=== PATIENT | male | born 1965 | race Caucasian/White ===

== ENCOUNTER 2016-10-04 08:36 | Emergency (ER) | payer OTHER ==
[~2016-10-04] VITALS: Ht 170.2 cm; Wt 96.1 kg
[2016-10-04 08:39] VITALS: TEMP 37; Ht 170.2 cm; Wt 96.1 kg
[2016-10-04] MEDS ORDERED: SODIUM CHLORIDE 0.9% 1000ML 1,000 ML IV STA (08:54)
[2016-10-04] MEDS ORDERED: RANI150T3 PO (08:57)
[2016-10-04 09:01] LABS: BASO % 0.4 %; BASO ABS # 0.02 K/uL (0-0.2); COMPLETE YES; EOS % 2.2 %; HEMATOCRIT 46.4 % (42-52); IG% 0.4 %; LYMPH % 28.1 %; LYMPH ABS # 1.54 K/uL (1.2-3.4); MEAN CELL VOLUME 91.3 fL (80-100); MEAN CORPUSCULAR HEMOGLOBIN 31.9 pg (25-34); MEAN CORPUSCULAR HGB CONC 34.9 g/dl (32-36); MEAN PLATELET VOLUME 9.6 fL (7.4-10.4); MONO % 9.1 %; NEUT % 59.8 %; PLATELET COUNT 224 K/uL (130-400); RED BLOOD COUNT 5.08 M/uL (4.7-6.1); WHITE BLOOD COUNT 5.49 K/uL (4.8-10.8)
--- NOTE | 2016-10-04 09:01 | EMERGENCY ROOM VISIT NOTE ---
History Report prepared by Kwabena: María Lopez Under the Supervision of: José Miguel BarreraO. First contact with patient: 08:43 Chief Complaint: ABDOMINAL PAIN Stated Complaint: ABD PAIN Nursing Triage Summary: Patient reports right sided abd pain off and on since June states he had a CT scan yesterday at [facility] and states the pain increased last night. Patient also having diarrhea and nausea. History of Present Illness The patient is a 51 year old male who presents to the Emergency Room with complaints of intermittent right lower quadrant abdominal pain that began initially in June. He currently rates his discomfort as a 4/10 in severity. The patient states that he has had the abdominal pain intermittently since June, but states that this particular bout of abdominal pain began Monday. He states that he has been following with Dr. Torres with Gastroenterology. The patient states that yesterday he had a CT scan at [facility], but is unsure what the results are. He states that today he has experienced nausea and diarrhea. The patient denies any chest pain, shortness of breath, back pain, fever, or urinary symptoms. He notes a surgical history of a partial colectomy due to a precancerous polyp. The patient additionally notes that he had an appendectomy at that time. He states that he still has his gallbladder. Source of History: patient Onset: June Position: abdomen (RLQ) Symptom Intensity: 4/10 Timing: intermittent Associated Symptoms: + diarrhea, + nausea, No SOB, No back pain, No chest pain, No fevers, No urinary symptoms, No vomiting Review of Systems See HPI for pertinent positives & negatives. A total of 10 systems reviewed and were otherwise negative. Past Medical & Surgical Medical Problems: (1) No chronic diseases present Surgical Problems: (1) Hx of appendectomy (2) Hx of colonoscopy (3) S/P partial colectomy Family History FHx: heart disease Hypertension Social History Smoking Status: Never Smoker Alcohol Use: none Drug Use: none Marital Status: Occupation Status: employed Current/Historical Medications Scheduled Ranitidine Hcl (Zantac), 150 MG PO DAILY Allergies Coded Allergies: No Known Allergies (Unverified , 10/04/16) Physical Exam Vital Signs Date Time Temp Pulse Resp B/P Pulse Ox O2 Delivery O2 Flow Rate FiO2 10/04/16 10:01 66 16 138/81 98 Room Air 10/04/16 08:39 37.0 77 20 117/72 95 Room Air Physical Exam GENERAL: Patient is awake, alert, and in no acute distress. Patient is resting comfortably and showing no signs of anxiety EYES: The conjunctivae are clear. The pupils are round and reactive. EARS, NOSE, MOUTH AND THROAT: The nose is without any evidence of any deformity. Mucous membranes are moist tongue is midline NECK: The neck is nontender and supple. RESPIRATORY: Normal respiratory effort is noted there is no evidence of wheezing rhonchi or rales CARDIOVASCULAR: Regular rate and rhythm noted there no murmurs rubs or gallops normal S1 normal S2 GASTROINTESTINAL: Mildly distended, but soft. Tenderness in the right upper and right lower quadrant to palpation. No guarding or rigidity noted. BACK: No midline tenderness or or step-off noted range of motion in flexion extension as well as rotation no signs of muscle spasm noted MUSCULOSKELETAL/EXTREMITIES: There is no evidence of gross deformity full range of motion is noted in the hips and shoulders SKIN: There is no obvious evidence of any rash. There are no petechiae, pallor or cyanosis noted. NEUROLOGIC: Patient is awake alert and oriented x3. Medical Decision & Procedures ER Provider Diagnostic Interpretation: CT results as stated below per my review and radiologist interpretation. Abdomen/Pelvis CT scan from [facility] 10/03/16 Impression: 1. No abnormality seen within the right upper quadrant. 2. Cecum appears positioned in the right mid to upper abdomen in the position of the proximal transverse colon without colonic loops observed at the expected location of the ascending and cecal regions. No bowel wall thickening, obstruction or ileus observed. Laboratory Results 10/04/16 08:50 Red Blood Count 5.08, Mean Corpuscular Volume 91.3, Mean Corpuscular Hemoglobin 31.9, Mean Corpuscular Hemoglobin Concent 34.9, Mean Platelet Volume 9.6, Neutrophils (%) (Auto) 59.8, Lymphocytes (%) (Auto) 28.1, Monocytes (%) (Auto) 9.1, Eosinophils (%) (Auto) 2.2, Basophils (%) (Auto) 0.4, Neutrophils # (Auto) 3.29, Lymphocytes # (Auto) 1.54, Monocytes # (Auto) 0.50, Eosinophils # (Auto) 0.12, Basophils # (Auto) 0.02 10/04/16 08:50 Test 10/04/16 08:50 10/04/16 10:07 White Blood Count 5.49 K/uL (4.8-10.8) Red Blood Count 5.08 M/uL (4.7-6.1) Hemoglobin 16.2 g/dL (14.0-18.0) Hematocrit 46.4 % (42-52) Mean Corpuscular Volume 91.3 fL (80-100) Mean Corpuscular Hemoglobin 31.9 pg (25-34) Mean Corpuscular Hemoglobin Concent 34.9 g/dl (32-36) Platelet Count 224 K/uL (130-400) Mean Platelet Volume 9.6 fL (7.4-10.4) Neutrophils (%) (Auto) 59.8 % Lymphocytes (%) (Auto) 28.1 % Monocytes (%) (Auto) 9.1 % Eosinophils (%) (Auto) 2.2 % Basophils (%) (Auto) 0.4 % Neutrophils # (Auto) 3.29 K/uL (1.4-6.5) Lymphocytes # (Auto) 1.54 K/uL (1.2-3.4) Monocytes # (Auto) 0.50 K/uL (0.11-0.59) Eosinophils # (Auto) 0.12 K/uL (0-0.5) Basophils # (Auto) 0.02 K/uL (0-0.2) RDW Standard Deviation 43.1 fL (36.4-46.3) RDW Coefficient of Variation 12.8 % (11.5-14.5) Immature Granulocyte % (Auto) 0.4 % Immature Granulocyte # (Auto) 0.02 K/uL (0.00-0.02) Anion Gap 9.0 mmol/L (3-11) Est Creatinine Clear Calc Drug Dose 87.8 ml/min Estimated GFR () 89.6 Estimated GFR (Non- 77.3 BUN/Creatinine Ratio 10.1 (10-20) Calcium Level 9.2 mg/dl (8.5-10.1) Total Bilirubin 0.7 mg/dl (0.2-1) Direct Bilirubin 0.1 mg/dl (0-0.2) Aspartate Amino Transf (AST/SGOT) 21 U/L (15-37) Alanine Aminotransferase (ALT/SGPT) 28 U/L (12-78) Alkaline Phosphatase 62 U/L (45-117) Total Protein 7.4 gm/dl (6.4-8.2) Albumin 4.0 gm/dl (3.4-5.0) Lipase 109 U/L (73-393) Urine Color YELLOW Urine Appearance CLEAR (CLEAR) Urine pH 6.5 (4.5-7.5) Urine Specific [place] 1.006 (1.000-1.030) Urine Protein NEG (NEG) Urine Glucose (UA) NEG (NEG) Urine Ketones NEG (NEG) Urine Occult Blood NEG (NEG) Urine Nitrite NEG (NEG) Urine Bilirubin NEG (NEG) Urine Urobilinogen NEG (NEG) Urine Leukocyte Esterase NEG (NEG) Laboratory results per my review. Medications Administered Medications (Trade) Dose Ordered Sig/Stan Route Start Time Stop Time Status Last Admin Dose Admin Sodium Chloride (Nss 1000ml) 1,000 ml @ 999 mls/hr Q1H1M STAT IV 10/04/16 08:54 10/04/16 09:54 DC 10/04/16 08:58 999 MLS/HR ED Course 0848: The patient was evaluated in room A4B. A complete history and physical examination were performed. 0854: Ordered Sodium Chloride 1000 ml @ 999 mls/hr IV. 1005: I reevaluated the patient and he is resting comfortably. I discussed the exam findings with him and I discussed the treatment plan. He verbalized complete understanding and agreement. The patient is ready to go home. 1007: I discussed the patients case with Dr. Torres, Gastroenterology. He said that the patient is okay to go home. Medical Decision Differential diagnosis: Etiologies such as appendicitis, diverticulitis, PUD, biliary pathology, UTI, pancreatitis, obstruction, mesenteric ischemia, aortic pathology, infections, inflammatory bowel disease, renal colic, as well as others were entertained. Nursing notes reviewed. Patient's CT from [facility] was also reviewed. The patient is a 51-year-old male who presented to the emergency department with right sided abdominal pain. The patient has a history of colon resection in the past. The patient has been having right-sided abdominal pain for the last few months. He states the pain is intermittent. He has a follow-up with his general surgeon this week but had a CAT scan of the abdomen and pelvis done yesterday. The patient's prep I think may have caused him some of this discomfort. His abdominal exam was not consistent with an acute surgical abdomen but he did have reproducible right sided abdominal pain. I discussed patient's laboratory and radiographic studies with him. He was treated with IV fluids in the emergency department. I also discussed his case with his primary general surgeon. At this time I have recommended that he follow-up with his primary surgeon this week as scheduled. He was also encouraged to rest and avoid any strenuous activity. He was also encouraged to continue all medications as prescribed and return the emergency Department immediately if symptoms change worsen or if the need arises. Consults Time Called: 1005 Consulting Physician: Dr. Torres, Gastroenterology Returned Call: 1007 I discussed the patients case with Dr. Torres, Gastroenterology. He said that the patient is okay to go home. Impression Primary Impression: Right upper quadrant abdominal pain Additional Impression: Diarrhea Scribe Attestation The scribe's documentation has been prepared under my direction and personally reviewed by me in its entirety. I confirm that the note above accurately reflects all work, treatment, procedures, and medical decision making performed by me. Departure Information Dispostion Home / Self-Care Referrals Hollis Berger M.D. (PCP) Neftali Torres M.D. Forms Call Back Authorization, HOME CARE DOCUMENTATION FORM, IMPORTANT VISIT INFORMATION, Work Instructions Patient Instructions ED Abd Pain Unkn Cause Male, My [facility] Additional Instructions Follow-up with your surgeon this week as scheduled. Continue all medications as prescribed. Drink plenty clear liquids. Return to the emergency department immediately if symptoms change worsen or if the need arises. Problem Qualifiers Additional Impression: Diarrhea Diarrhea type: unspecified type Qualified Codes: R19.7 - Diarrhea, unspecified
[2016-10-04 09:19] LABS: BUN/CREATININE RATIO 10.1 (10-20); CALCIUM 9.2 mg/dl (8.5-10.1); CREATININE 1.1 mg/dl (0.60-1.40); POTASSIUM 3.8 mmol/L (3.5-5.1)
[2016-10-04 10:01] VITALS: BP 138/81; PULSE 66; O2SAT 98
[2016-10-04 10:16] LABS: URINE APPEARANCE CLEAR (CLEAR); URINE BILIRUBIN NEG (NEG); URINE COLOR YELLOW; URINE NITRITE NEG (NEG); URINE PH 6.5 (4.5-7.5); URINE SPECIFIC GRAVITY 1.006 (1.000-1.030); UROBILINOGEN NEG (NEG)
[2016-10-04 10:21] LABS: MANUAL MICROSCOPIC REQUIRED? NO; REVIEW REQ? NO
== END 2016-10-04 10:21 | disposition home or self-care (01) ==
LOC: C.EDB 08:38 → C.EDA 10:21
DX: R10.11 Right upper quadrant pain (principal); R19.7 Diarrhea, unspecified; R10.31 Right lower quadrant pain; Z82.49 Family history of ischemic heart disease and other diseases of the circulatory system

== ENCOUNTER 2017-05-14 01:09 | Emergency (ER) | payer OTHER ==
[~2017-05-14] VITALS: Ht 172.7 cm; Wt 93.8 kg
[~2017-05-14 01:09] MED LIST: RANI150T3 PO
[2017-05-14 01:23] VITALS: TEMP 36.7; Ht 172.7 cm; Wt 93.8 kg
[2017-05-14 03:10] LABS: URINE APPEARANCE CLEAR (CLEAR); URINE BILIRUBIN NEG (NEG); URINE COLOR YELLOW; URINE EPITHELIAL CELL AUTO 0-5 /lpf (0-5); URINE NITRITE NEG (NEG); URINE SPECIFIC GRAVITY 1.015 (1.000-1.030); UROBILINOGEN NEG (NEG); ZZUR CULT IF INDIC CLEAN CATCH NO
[2017-05-14 03:14] LABS: BASO % 0.5 %; BASO ABS # 0.03 K/uL (0-0.2); COMPLETE YES; EOS % 3.2 %; HEMATOCRIT 46.3 % (42-52); IG% 0.2 %; LYMPH % 28.1 %; LYMPH ABS # 1.86 K/uL (1.2-3.4); MEAN CELL VOLUME 91.5 fL (80-100); MEAN CORPUSCULAR HEMOGLOBIN 31.2 pg (25-34); MEAN CORPUSCULAR HGB CONC 34.1 g/dl (32-36); MEAN PLATELET VOLUME 9.7 fL (7.4-10.4); MONO % 13.4 %; NEUT % 54.6 %; PLATELET COUNT 239 K/uL (130-400); RED BLOOD COUNT 5.06 M/uL (4.7-6.1); WHITE BLOOD COUNT 6.62 K/uL (4.8-10.8)
[2017-05-14 03:14] LABS: MANUAL MICROSCOPIC REQUIRED? NO; REVIEW REQ? NO
[2017-05-14 03:28] LABS: BUN/CREATININE RATIO 20.1 (10-20); CALCIUM 8.8 mg/dl (8.5-10.1); CREATININE 0.85 mg/dl (0.60-1.40); POTASSIUM 3.6 mmol/L (3.5-5.1)
[2017-05-14 03:31] LABS: ALB/GLOB RATIO 1.2 (0.9-2)
[2017-05-14] MEDS ORDERED: NAPR1TAB9 PO (03:41)
[2017-05-14] MEDS ORDERED: OMEP40CA41 PO (03:41)
--- NOTE | 2017-05-14 06:45 | DIAGNOSTIC IMAGING REPORT ---
CHEST ONE VIEW PORTABLE CLINICAL HISTORY: Shortness of breath. Abdominal pain, nausea, vomiting, diarrhea. COMPARISON STUDY: 07/19/2016 FINDINGS: The cardiac and mediastinal contours are normal. There is no evidence of focal pulmonary consolidation. There is no evidence of failure. No pleural effusions are visualized.[ No free intraperitoneal air is visualized. IMPRESSION: No active disease in the chest. Electronically signed by: Isael Lara M.D. 05/14/2017 6:44 AM Dictated Date/Time: 05/14/2017 6:43 AM
--- NOTE | 2017-05-14 06:50 | EMERGENCY ROOM VISIT NOTE ---
History Report prepared by Kwabena: Ann Hoffman Under the Supervision of: Dr. uJli Vizcarra D.O. First contact with patient: 03:17 Chief Complaint: GI ASSESSMENT Stated Complaint: SHORTNESS OF BREATH,NECK PAIN,STOMACH PAIN Nursing Triage Summary: pt woke with diarrhea nausea and then became sob. 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 The patient woke up from sleep to go to the bathroom. He had some diarrhea. He then started having nausea, SOB, and chills. He felt like his abdomen with tightening up. He then noticed that he had some left flank pain. He has never had these symptoms before. He denies any urinary symptoms, cough, fever, bloody stool, vomiting, or joint pain. He notes that he developed some neck pain this morning after going on a walk. He is concerned for lyme disease as he does spend time in the [place]. He has been having GI problems for several years now. He has been having intermittent diarrhea for several months. He has also been having right sided abdominal pain which he thinks might worsen with coffee consumption. He notes that his abdominal pain improves at times after he passes gas. He has a history of partial colectomy for a precancerous polyp. He denies any family history of colon cancer. He is on omeprazole. He denies any recent medication or dietary changes. The patient is a difficult historian. 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 Review of Systems See HPI for pertinent positives & negatives. A total of 10 systems reviewed and were otherwise negative. Past Medical & Surgical Surgical Problems: (1) Hx of appendectomy (2) Hx of colonoscopy (3) S/P partial colectomy Family History FHx: heart disease Hypertension Social History Smoking Status: Never Smoker Alcohol Use: none Drug Use: none Marital Status: Occupation Status: employed Current/Historical Medications Scheduled Omeprazole (Prilosec), 40 MG PO BID Scheduled PRN Naproxen (Aleve), 220 MG PO Q12 PRN for Pain Allergies Coded Allergies: No Known Allergies (Unverified , 05/14/17) Physical Exam Vital Signs Date Time Temp Pulse Resp B/P (MAP) Pulse Ox O2 Delivery O2 Flow Rate FiO2 05/14/17 07:17 61 18 118/71 99 Room Air 05/14/17 06:20 58 16 120/67 98 Room Air 05/14/17 04:21 88 16 123/76 98 Room Air 05/14/17 01:23 36.7 85 18 142/88 98 Room Air Physical Exam GENERAL: alert, well appearing, well nourished, no distress, non-toxic EYE EXAM: normal conjunctiva, PERRL and EOM's grossly intact OROPHARYNX: no exudate, no erythema, lips, buccal mucosa, and tongue normal and mucous membranes are moist NECK: supple, no nuchal rigidity, no adenopathy, non-tender LUNGS: Clear to auscultation. Normal chest wall mechanics HEART: no murmurs, S1 normal and S2 normal ABDOMEN: abdomen soft, non-tender, normo-active bowel sounds, no masses, no rebound or guarding. BACK: Back is symmetrical on inspection and there is no deformity, no midline tenderness, no CVA tenderness. SKIN: no rashes and no bruising UPPER EXTREMITIES: upper extremities are grossly normal. LOWER EXTREMITIES: No pitting edema. NEURO EXAM: Normal sensorium, cranial nerves II-XII grossly intact, normal speech, no gross weakness of arms, no gross weakness of legs. Medical Decision & Procedures ER Provider Diagnostic Interpretation: Radiology results have been interpreted by the [employer] radiologist and reviewed by me. CT Abdomen & Pelvis without contrast: Gallbladder is contracted limiting evaluation. No calcified gallstones or CT evidence for cholecystitis is appreciated. No urinary tract calculi or hydronephrosis. Diverticulosis. No diverticulitis or other acute process. Postop changes with right hemicolectomy. Xray results have been interpreted by me. Chest X-ray: No cardiomegaly. No effusion. No focal infiltrate. No wide mediastinum. No pulmonary edema. Laboratory Results 05/14/17 02:24 Red Blood Count 5.06, Mean Corpuscular Volume 91.5, Mean Corpuscular Hemoglobin 31.2, Mean Corpuscular Hemoglobin Concent 34.1, Mean Platelet Volume 9.7, Neutrophils (%) (Auto) 54.6, Lymphocytes (%) (Auto) 28.1, Monocytes (%) (Auto) 13.4, Eosinophils (%) (Auto) 3.2, Basophils (%) (Auto) 0.5, Neutrophils # (Auto ) 3.62, Lymphocytes # (Auto) 1.86, Monocytes # (Auto) 0.89, Eosinophils # (Auto ) 0.21, Basophils # (Auto) 0.03 05/14/17 02:24 Test 05/14/17 02:24 05/14/17 02:45 05/14/17 06:31 White Blood Count 6.62 K/uL (4.8-10.8) Red Blood Count 5.06 M/uL (4.7-6.1) Hemoglobin 15.8 g/dL (14.0-18.0) Hematocrit 46.3 % (42-52) Mean Corpuscular Volume 91.5 fL (80-100) Mean Corpuscular Hemoglobin 31.2 pg (25-34) Mean Corpuscular Hemoglobin Concent 34.1 g/dl (32-36) Platelet Count 239 K/uL (130-400) Mean Platelet Volume 9.7 fL (7.4-10.4) Neutrophils (%) (Auto) 54.6 % Lymphocytes (%) (Auto) 28.1 % Monocytes (%) (Auto) 13.4 % Eosinophils (%) (Auto) 3.2 % Basophils (%) (Auto) 0.5 % Neutrophils # (Auto) 3.62 K/uL (1.4-6.5) Lymphocytes # (Auto) 1.86 K/uL (1.2-3.4) Monocytes # (Auto) 0.89 K/uL (0.11-0.59) Eosinophils # (Auto) 0.21 K/uL (0-0.5) Basophils # (Auto) 0.03 K/uL (0-0.2) RDW Standard Deviation 42.9 fL (36.4-46.3) RDW Coefficient of Variation 12.9 % (11.5-14.5) Immature Granulocyte % (Auto) 0.2 % Immature Granulocyte # (Auto) 0.01 K/uL (0.00-0.02) Anion Gap 6.0 mmol/L (3-11) Est Creatinine Clear Calc Drug Dose 112.9 ml/min Estimated GFR () 116.1 Estimated GFR (Non- 100.2 BUN/Creatinine Ratio 20.1 (10-20) Calcium Level 8.8 mg/dl (8.5-10.1) Total Bilirubin 0.4 mg/dl (0.2-1) Aspartate Amino Transf (AST/SGOT) 16 U/L (15-37) Alanine Aminotransferase (ALT/SGPT) 26 U/L (12-78) Alkaline Phosphatase 91 U/L (45-117) Total Protein 7.4 gm/dl (6.4-8.2) Albumin 4.0 gm/dl (3.4-5.0) Globulin 3.4 gm/dl (2.5-4.0) Albumin/Globulin Ratio 1.2 (0.9-2) Urine Color YELLOW Urine Appearance CLEAR (CLEAR) Urine pH 6.0 (4.5-7.5) Urine Specific [place] 1.015 (1.000-1.030) Urine Protein NEG (NEG) Urine Glucose (UA) NEG (NEG) Urine Ketones NEG (NEG) Urine Occult Blood TRACE (NEG) Urine Nitrite NEG (NEG) Urine Bilirubin NEG (NEG) Urine Urobilinogen NEG (NEG) Urine Leukocyte Esterase NEG (NEG) Urine WBC (Auto) 1-5 /hpf (0-5) Urine RBC (Auto) 0-4 /hpf (0-4) Urine Hyaline Casts (Auto) 0 /lpf (0-5) Urine Epithelial Cells (Auto) 0-5 /lpf (0-5) Urine Bacteria (Auto) NEG (NEG) Troponin I < 0.015 ng/ml (0-0.045) Laboratory results per my review. ECG Indication: abdominal pain Rate (beats per minute): 58 Rhythm: sinus bradycardia Findings: no acute ischemic change, no ectopy, other (normal axis, normal intervals) ED Course 0343: The patient was evaluated in room A4B. A complete history and physical exam was performed. 0602: Upon reevaluation, the patient is feeling better. I discussed the findings and the treatment plan with the patient. He verbalizes agreement and understanding. He was discharged home. Medical Decision Differential diagnoses includes but is not limited to gastritis, peptic ulcer disease, GERD, gallbladder disease, pancreatitis, small bowel obstruction, acute coronary syndrome, pericarditis, ischemic bowel, irritable bowel disease, irritable bowel syndrome, appendicitis, diverticulitis, malignancy, hernia, urinary tract infection, torsion, perforation, trauma, infectious. Patient's symptoms had improved prior to my evaluation. Small amount of blood noted in the urine, so CAT scan ordered. No evidence of kidney stone. No evidence of additional infectious etiology. No evidence of bowel obstruction or other acute GI pathology. Doubt mesenteric ischemia. No evidence of bacteremia/sepsis. Discussed close follow-up with family doctor as well as GI specialist regarding the intermittent abdominal pain and nausea he has had of the course of several weeks. Discussed with him symptoms to watch and return for, he verbalized understanding was agreeable with plan. Patient's vital signs stable throughout, patient well-appearing time of discharge, tolerating by mouth. Medication Reconcilliation Current Medication List: was personally reviewed by me Blood Pressure Screening Patient's blood pressure: Normal blood pressure Blood pressure disposition: Did not require urgent referral Impression Primary Impression: Abdominal pain Additional Impressions: Diarrhea Nausea Hematuria Scribe Attestation The scribe's documentation has been prepared under my direction and personally reviewed by me in its entirety. I confirm that the note above accurately reflects all work, treatment, procedures, and medical decision making performed by me. Departure Information Dispostion Home / Self-Care Referrals Hollis Berger M.D. (PCP) Patient Instructions My [facility] Additional Instructions Please follow up with your family doctor regarding the episode of abdominal pain and nausea you had tonight. Please continue regular medications as prescribed. Please continue to monitor your diet for any potential triggers or pattern to your intermittent episodes of abdominal pain and loose stools. If you have any recurrent or persistent pain, develop diarrhea, black or bloody stools, vomiting, fevers, or you've any other new concerns, please return the emergency room. There was a small amount of blood noted in your urine specimen , please have your family doctor recheck this. If this persists, you may need additional evaluation by urology. Problem Qualifiers Primary Impression: Abdominal pain Abdominal location: left lower quadrant Qualified Codes: R10.32 - Left lower quadrant pain Additional Impressions: Diarrhea Diarrhea type: unspecified type Qualified Codes: R19.7 - Diarrhea, unspecified Hematuria Hematuria type: unspecified type Qualified Codes: R31.9 - Hematuria, unspecified
[2017-05-14 07:17] VITALS: BP 118/71; PULSE 61; O2SAT 99
--- NOTE | 2017-05-14 08:48 | DIAGNOSTIC IMAGING REPORT ---
CT SCAN OF THE ABDOMEN AND PELVIS WITHOUT CONTRAST CLINICAL HISTORY: Flank pain and hematuria COMPARISON STUDY: No previous studies for comparison. TECHNIQUE: CT scan of the abdomen and pelvis was performed from the lung bases to the proximal femurs. Images are reviewed in the axial, sagittal, and coronal planes. IV contrast was not administered for this examination. A dose lowering technique was utilized adhering to the principles of ALARA. CT DOSE: 501.10 mGy.cm FINDINGS: Lower chest: There are minimal dependent atelectatic changes Liver: The unenhanced liver is normal in size, contour, and attenuation. There is no intrahepatic biliary ductal dilatation. Gallbladder: Unremarkable. Spleen: Normal in size and attenuation. There is a 2 cm splenule Pancreas: Unremarkable. Adrenal glands: Unremarkable. Kidneys: No renal, ureteral, or bladder calculi are visualized. Bowel: There are no transition zones to indicate bowel obstruction. The patient appears be status post a prior right hemicolectomy. There is no acute diverticulitis. Peritoneum: There is no intraperitoneal free air or abdominal ascites. There is small fat-containing inguinal hernias left larger than right Vasculature: The abdominal aorta is normal in course and caliber. Adenopathy: None. Pelvic viscera: The bladder, and pelvic viscera are unremarkable. Skeletal structures: No destructive osseous lesions are seen. IMPRESSION: 1. Postsurgical changes of a right hemicolectomy 2. No acute findings. 3. No renal, ureteral, or bladder calculi identified 4. No evidence of bowel obstruction. No evidence of free air. Electronically signed by: Isael Lara M.D. 05/14/2017 8:47 AM Dictated Date/Time: 05/14/2017 8:43 AM
== END 2017-05-14 07:39 | disposition home or self-care (01) ==
LOC: C.EDB 01:11 → C.EDA 07:39
DX: R10.32 Left lower quadrant pain (principal); R19.7 Diarrhea, unspecified; R11.0 Nausea; R31.9 Hematuria, unspecified; Z86.010 Personal history of colon polyps; Z82.49 Family history of ischemic heart disease and other diseases of the circulatory system; Z79.899 Other long term (current) drug therapy

== ENCOUNTER 2023-12-19 03:15 | Observation (INO) ==
[2023-12-19] MEDS ORDERED: MoRPHine SULFATE 4 MG/ML 1 ML CARP\\VIAL IV PRN (03:32)
[2023-12-19] MEDS: SODIUM CHLORIDE 0.9% 1,000 ML IV SCH ×2 (03:39→06:45)
[2023-12-19 03:52] LABS: Basophils # (auto) 0.03 K/uL (0.00-0.20); Basophils % (auto) 0.4 %; Eosinophils # (auto) 0.36 K/uL (0.00-0.50); Eosinophils % (auto) 4.8 %; Hemoglobin 14.6 g/dl (14.0-18.0); Immature Granulocytes # (auto) 0.02 K/uL (0.01-0.20); Immature Granulocytes % (auto) 0.3 %; Lymphocytes # (auto) 2.04 K/uL (1.20-3.40); Lymphocytes % (auto) 26.9 %; Mean Corpuscular Hemoglobin 31.7 pg (25.0-34.0); Mean Corpuscular Hgb Conc 33.2 g/dL (32.0-36.0); Mean Corpuscular Volume 95.4 fL (80.0-100.0); Mean Platelet Volume 10.2 fL (9.4-12.4); Monocytes # (auto) 0.79 K/uL (0.11-0.59); Monocytes % (auto) 10.4 %; Neutrophils # (auto) 4.33 K/uL (1.40-6.50); Neutrophils % (auto) 57.2 %; Platelet Count 170 K/uL (130-400); RDW Coefficient of Variation 14.1 % (11.5-14.5); RDW Standard Deviation 49.4 fL (36.4-46.3); Red Blood Count 4.61 M/uL (4.70-6.10); White Blood Count 7.57 K/ul (4.8-10.8)
[2023-12-19 04:03] LABS: Albumin Globulin Ratio 1.7 (0.9-2); BUN Creatinine Ratio 17.8 (10-20); Bilirubin,Total 1.3 mg/dl (0.2-1.0); Calcium 9.1 mg/dl (8.6-10.3); Creatinine Clr Calc Pharmacy 99.7 ml/min; Est GFR (African American) 108.7 ml/min; Est GFR (Non-African American) 93.8 ml/min; Globulin 2.3 gm/dl (2.5-4.0); Magnesium 1.8 mg/dl (1.7-2.4); Potassium 4.2 mmol/L (3.5-5.1); Total Protein 6.3 gm/dl (6.0-8.3)
--- NOTE | 2023-12-19 05:34 | Emergency Department Note ---
History of Present Illness General Chief complaint: GI Assessment Stated complaint: ABDOMINAL PAIN - POSSIBLE INTESTINAL PERFORATION Time Seen by Provider: 12/19/23 03:24 History of Present Illness Maximum Pain Intensity: 6 This is a 58-year-old male presenting to the emergency department for evaluation of right-sided and lower abdominal pain. Patient symptoms have been worsening over the past 2 to 3 days. He does have a history of colon cancer with subsequent colon resection. Last month the patient was at this facility for similar pain and was found to have a perforated Meckel's diverticulum that resolved with antibiotics and conservative care. Patient is concerned for the same as symptoms are fairly similar to that episode. He has not had nausea or vomiting. He feels like he has been using the bathroom as normal. He rates his discomfort a 6/10. Home Medications Medication Instructions Recorded Confirmed Type amoxicillin 875 mg-potassium 1 tab PO BID #14 tabs 11/12/23 Rx clavulanate 125 mg tablet Allergies Allergy/AdvReac Type Severity Reaction Status Date / Time No Known Allergies Allergy Verified 11/12/23 19:43 Past Med/Surg History Problem List (Updated 12/19/23 @ 07:15 by Prasad Eugene PA-C) Meckel diverticulum (Acute) Abdominal pain (Acute) Atrial fibrillation with rapid ventricular response (Acute) COVID-19 virus infection (Acute) History of colon resection Tubulovillous adenoma of colon (Acute 07/07/14) Abdominal pain (Acute) Elevated CK (Acute) Multiple air fluid levels of small intestine determined by X-ray (Acute) Diarrhea (Acute) Right upper quadrant abdominal pain (Acute) Social History Smoking Status: Never smoker Preferred Language: Thai marital status: Current Living Situation: Spouse and Family current occupational status: employed Feels Safe at Home: No Review of Systems A total of 10 systems reviewed and were otherwise negative Physical Exam Vital Signs Vital Signs - 24 hr 12/19/23 03:18 12/19/23 06:12 12/19/23 06:14 Temperature 36.2 C L Temperature Source Temporal Artery Scan Pulse Rate 103 H 120 H Pulse Rate [Apical] 126 H Pulse Rate from SpO2 Sensor Pulse Rhythm Irregular Pulse Rhythm [Apical] Irregular Pulse Strength [Apical] Normal Respiratory Rate 18 16 16 Respiratory Effort / Characteristics Non-Labored Non-Labored Spontaneous Respiratory Depth Normal Normal Respiratory Pattern Regular Blood Pressure 126/86 Blood Pressure [Right Arm] 124/87 Blood Pressure Mean 99 Blood Pressure Mean [Right Arm] 99 Blood Pressure Position [Right Arm] Semi-fowlers Pulse Oximetry 98 97 97 Oxygen Delivery Method Room Air Room Air Room Air Sepsis Recent Fever Within 48 Hours No Sepsis New/Unexplained Change in Mental Status N/A Sepsis Action Taken by Nursing No Action Required 12/19/23 06:17 12/19/23 06:18 12/19/23 06:20 Temperature Temperature Source Pulse Rate 138 H 131 H 118 H Pulse Rate [Apical] Pulse Rate from SpO2 Sensor 108 H 120 H Pulse Rhythm Pulse Rhythm [Apical] Pulse Strength [Apical] Respiratory Rate 22 22 Respiratory Effort / Characteristics Respiratory Depth Respiratory Pattern Blood Pressure Blood Pressure [Right Arm] Blood Pressure Mean Blood Pressure Mean [Right Arm] Blood Pressure Position [Right Arm] Pulse Oximetry 97 98 Oxygen Delivery Method Sepsis Recent Fever Within 48 Hours Sepsis New/Unexplained Change in Mental Status Sepsis Action Taken by Nursing 12/19/23 06:30 12/19/23 06:40 12/19/23 06:42 Temperature Temperature Source Pulse Rate 117 H 124 H Pulse Rate [Apical] Pulse Rate from SpO2 Sensor 112 H 99 H Pulse Rhythm Pulse Rhythm [Apical] Pulse Strength [Apical] Respiratory Rate 22 22 Respiratory Effort / Characteristics Respiratory Depth Respiratory Pattern Blood Pressure 128/94 Blood Pressure [Right Arm] Blood Pressure Mean 114 Blood Pressure Mean [Right Arm] Blood Pressure Position [Right Arm] Pulse Oximetry 96 98 Oxygen Delivery Method Sepsis Recent Fever Within 48 Hours Sepsis New/Unexplained Change in Mental Status Sepsis Action Taken by Nursing 12/19/23 06:42 12/19/23 06:50 Temperature Temperature Source Pulse Rate 129 H 101 H Pulse Rate [Apical] Pulse Rate from SpO2 Sensor 121 H 90 Pulse Rhythm Pulse Rhythm [Apical] Pulse Strength [Apical] Respiratory Rate 22 22 Respiratory Effort / Characteristics Respiratory Depth Respiratory Pattern Blood Pressure Blood Pressure [Right Arm] Blood Pressure Mean Blood Pressure Mean [Right Arm] Blood Pressure Position [Right Arm] Pulse Oximetry 96 95 Oxygen Delivery Method Sepsis Recent Fever Within 48 Hours Sepsis New/Unexplained Change in Mental Status Sepsis Action Taken by Nursing VITALS: Vitals are noted on the nurse's note and reviewed by myself. Vital signs stable. GENERAL: Well-developed, well-nourished, white male, who is in no acute distress and resting comfortably. Patient is cooperative with the examination. HEAD: Normocephalic atraumatic. HEART: Regular rate and rhythm without murmurs gallops or rubs. LUNGS: Clear to auscultation bilaterally without wheezes, rales or rhonchi. No retractions or accessory muscle use. ABDOMEN: Positive normal bowel sounds x 4. Soft, nontender, without masses or organomegaly. No guarding or rebound tenderness. MUSCULOSKELETAL: No muscle atrophy, erythema, or edema noted. Full range of motion in all extremities. Course Administered Medications Sodium Chloride (Nss) 1,000 mls @ 125 mls/hr IV .Q8H YOSSI Stop: 01/18/24 06:44 Last Admin: 12/19/23 06:45 Dose: 125 mls/hr Documented By: AAMIR Discontinued Medications Diltiazem HCl (Diltiazem Hcl 5 Mg/Ml 5 Ml Vial) 20 mg IV NOW STA Stop: 12/19/23 06:36 Last Admin: 12/19/23 06:45 Dose: 20 mg Documented By: AAMIR Co-signed By: REGINA Sodium Chloride (Nss) 1,000 mls @ 999 mls/hr IV .Q1H1M YOSSI Stop: 12/19/23 04:45 Last Infusion: 12/19/23 04:30 Dose: Infused Documented By: Admin: 12/19/23 03:39 Dose: 999 mls/hr Documented By: JUSTYNA Ioversol (Optiray 320 100ml) 100 ml IV ONCE ONE Stop: 12/19/23 05:55 Last Admin: 12/19/23 05:55 Dose: 92 ml Documented By: JANES Ondansetron HCl (Ondansetron Inj 2 Mg/Ml 2 Ml Vial) 4 mg IV NOW STA Stop: 12/19/23 03:33 Last Admin: 12/19/23 06:50 Dose: Not Given Documented By: AAMIR Medical Decision Making Differential Diagnosis Differential diagnosis: Etiologies such as biliary colic, cholecystitis, hepatitis, pancreatitis, cardiac disease, pancreatitis, gastritis, peptic ulcer disease, appendicitis, cystitis, diverticulitis, mesenteric ischemia, inflammatory bowel disease, ileus, bowel obstruction, testicular/adnexal torsion, aortic pathology, shingles, as well as others were considered Laboratory Data 12/19/23 03:28 12/19/23 03:28 Lab Results 12/19/23 12/19/23 Range/Units 03:28 05:20 WBC 7.57 (4.8-10.8) K/ul RBC 4.61 L (4.70-6.10) M/uL Hgb 14.6 (14.0-18.0) g/dl Hct 44.0 (42.0-52.0) % MCV 95.4 (80.0-100.0) fL MCH 31.7 (25.0-34.0) pg MCHC 33.2 (32.0-36.0) g/dL RDW Std Deviation 49.4 H (36.4-46.3) fL RDW Coeff of Anisha 14.1 (11.5-14.5) % Plt Count 170 (130-400) K/uL MPV 10.2 (9.4-12.4) fL Immature Gran % (Auto) 0.3 % Neut % (Auto) 57.2 % Lymph % (Auto) 26.9 % Meagher % (Auto) 10.4 % Eos % (Auto) 4.8 % Baso % (Auto) 0.4 % Neut # (Auto) 4.33 (1.40-6.50) K/uL Lymph # (Auto) 2.04 (1.20-3.40) K/uL Meagher # (Auto) 0.79 H (0.11-0.59) K/uL Eos # (Auto) 0.36 (0.00-0.50) K/uL Baso # (Auto) 0.03 (0.00-0.20) K/uL Immature Gran # (Auto) 0.02 (0.01-0.20) K/uL Sodium 139 (136-145) mmol/L Potassium 4.2 (3.5-5.1) mmol/L Chloride 106 (98-107) mmol/L Carbon Dioxide 29 (21-32) mmol/L Anion Gap 4 (3-11) BUN 16 (6-23) mg/dl Creatinine 0.90 (0.6-1.4) mg/dl Est Cr Clr Drug Dosing 99.7 ml/min Est GFR ( Amer) 108.7 ml/min Est GFR (Non-Af Amer) 93.8 ml/min BUN/Creatinine Ratio 17.8 (10-20) Glucose 94 (70-99(Fasting)) mg/dl Calcium 9.1 (8.6-10.3) mg/dl Magnesium 1.8 (1.7-2.4) mg/dl Total Bilirubin 1.3 H (0.2-1.0) mg/dl AST 28 (13-39) U/L ALT 30 (7-52) U/L Alkaline Phosphatase 79 (34-104) U/L Total Protein 6.3 (6.0-8.3) gm/dl Albumin 4.0 (3.4-5.0) gm/dl Globulin 2.3 L (2.5-4.0) gm/dl Albumin/Globulin Ratio 1.7 (0.9-2) Lipase 16 (11-82) U/L Urine Color Yellow Urine Appearance Clear (Clear) Urine pH 6.0 (4.5-7.5) Ur Specific [place] 1.014 (1.000-1.030) Urine Protein Trace H (Negative) Urine Glucose (UA) Negative (Negative) Urine Ketones Negative (Negative) Urine Blood Negative (Negative) Urine Nitrite Negative (Negative) Urine Bilirubin Negative (Negative) Urine Urobilinogen Negative (Negative) Ur Leukocyte Esterase Negative (Negative) Urine WBC (Auto) 0-5 (0-5) /hpf Urine RBC (Auto) 0-2 (0-2) /hpf U Hyaline Cast (Auto) 0-2 (0-2) /lpf U Epithel Cells (Auto) 0-2 (0-2) /hpf Urine Bacteria (Auto) None Seen (None Seen) Urine Opiates Screen Neg (Neg) Ur Methadone, Qual Neg (Neg) Urine Barbiturates Neg (Neg) Ur Phencyclidine (PCP) Neg (Neg) U Amphetamin/Meth Scrn Neg (Neg) MDMA (Ecstasy) Screen Neg (Neg) U Benzodiazepines Scrn Neg (Neg) Ur Cocaine Metabolite Neg (Neg) U Marijuana (THC) Screen Neg (Neg) Ethyl Alcohol mg/dL < 10.0 (<10.0) mg/dl Imaging Data Radiologist's Impression: Abdomen/Pelvis CT 12/19/23 03:32 Exam(s): CT ABDOMEN + PELVIS With Contrast Oral - High Density Amt: 30 ML GASTRO, IV Amt: 92 ML OPTIRAY 320 EXAM: CT Abdomen and Pelvis With Intravenous Contrast CLINICAL HISTORY: Reason for exam: R abd pain. Hx meckels with perf.. TECHNIQUE: Axial computed tomography images of the abdomen and pelvis with intravenous contrast. CTDI is 26.98 mGy and DLP is 1276.01 mGy-cm. Automated exposure control was utilized for the study. A dose lowering technique was utilized adhering to the principles of ALARA. CONTRAST: Patient received 30 ML GASTRO of Oral - High Density and 92 ML OPTIRAY 320 of IV contrast COMPARISON: No relevant prior studies available. FINDINGS: Lung bases: There is some septal wall thickening to the lungs greatest to the right lower lobe. No consolidation. ABDOMEN: Liver: Patchy regions of hypodensities scattered throughout the liver parenchyma. Gallbladder and bile ducts: Unremarkable. No calcified stones. No ductal dilation. Pancreas: Unremarkable. No mass. No ductal dilation. Spleen: Unremarkable. No splenomegaly. Adrenals: Unremarkable. No mass. Kidneys and ureters: Unremarkable. No solid mass. No hydronephrosis. Stomach and bowel: There is a tubular structure demonstrated within the right side of the abdomen which is blind ending. There is some inflammation and thickening demonstrated surrounding it. It communicates with the approximated distal small bowel. There are postsurgical changes demonstrated to the bowel. No obstruction. PELVIS: Appendix: No findings to suggest acute appendicitis. Bladder: There is some urinary bladder wall mild thickening, distention and trabeculation. Reproductive: Unremarkable as visualized. ABDOMEN and PELVIS: Intraperitoneal space: Unremarkable. No free air. No significant fluid collection. Bones/joints: There are degenerative changes to the osseous structures. No acute fracture. No dislocation. Soft tissues: Unremarkable. Vasculature: Unremarkable. No abdominal aortic aneurysm. Lymph nodes: Unremarkable. No enlarged lymph nodes. IMPRESSION: Right abdominal abnormality presumably related to inflamed Meckel's diverticula patchy hypodensities of the liver probable regions of focal fatty infiltration definitive assessment would require liver MRI. Imaging findings suggesting a component of bladder outlet obstruction or cystitis. Some septal wall thickening correlate for signs of cardiogenic or noncardiogenic edema. Electronically signed by: Ghanshyam Wagner MD 12/19/23 06:49 AM ECG Data Attestation: I personally reviewed and interpreted this ECG as follows: Indication: + abdominal pain Additional Comments: Atrial fibrillation with rapid ventricular response @123 bpm Abnormal ECG When compared with ECG of 14-APR-2021 14:00, Atrial fibrillation has replaced Sinus rhythm Vent. rate has increased BY 63 BPM Nonspecific T wave abnormality now evident in Anterior leads MDM Narrative Physical exam and history were performed. Nursing notes, EMR, and Medication List were personally reviewed. No social concerns were identified as barriers to patients care. Patient appears to have abdominal pain bringing him to the ER. Symptoms feel similar to a month ago when he had perforation of Meckel's diverticulum. IV access was established and labs were obtained. Patient was hydrated with normal saline. He was ordered morphine and Zofran, but declined these as his pain is fairly well-controlled. Patient was sent to CT scan for imaging of his abdomen and pelvis with IV and oral contrast. Patient's blood work is as above and was reviewed. He does not have a significantly elevated white blood cell count, gross anemia, or significant electrolyte imbalance. Lipase and transaminases are not diagnostic. Bilirubin is slightly elevated at 1.3. Urine without evidence of infection. Alcohol and drug abuse screen is negative. Upon returning from CT scan, nursing did place the patient on the vehicle monitor technician and patient was found to be tachycardic. EKG was performed and the patient is in atrial fibrillation with rapid ventricular response. On reevaluation patient is asymptomatic with this, and does not have chest pain, chest tightness, shortness of breath, lightheadedness, or dizziness. This appears to be his first episode of A-fib with RVR. Case was discussed with my attending, Dr. Vizcarra. Patient was given 20 mg IV Cardizem, as well as 1 g IV magnesium. Patient was placed on maintenance fluid bolus. Overall the patient does not appear well for discharge. Escalation of care is necessary. Case was discussed with the on-call hospitalist team who agreed to evaluate him here in the ER. Please see their dictation for further patient course, plan, and disposition. The chart was completed utilizing [employer] Speech Voice Recognition Software. Grammatical errors, random word insertions, pronoun errors, and incomplete sentences are an occasional consequence of this system due to software limitations, ambient noise, and hardware issues. Any formal questions or concerns about the content, text, or information contained within the body of this dictation should be directly addressed to the provider for clarification. . Impression & Plan Atrial fibrillation with rapid ventricular response, Abdominal pain, Meckel diverticulum Discharge Plan Visit Data Chief Complaint: GI Assessment Stated Complaint: ABDOMINAL PAIN - POSSIBLE INTESTINAL PERFORATION ED Provider: Juli Vizcarra ED Midlevel Provider: Prasad Eugene Discharge Problem: Atrial fibrillation with rapid ventricular response, Abdominal pain, Meckel diverticulum Forms Stand Alone Forms: My [email or web address] [email or web address] Prescriptions Prescriptions: No Action amoxicillin-pot clavulanate 875-125 mg tablet 1 tab PO BID Qty: 14 0RF Referrals Referrals: Hollis Berger [Primary Care Provider] -
[2023-12-19 05:54] LABS: Appearance Urine Clear (Clear); Bacteria Urine Automated None Seen (None Seen); Bilirubin Urine Negative (Negative); Blood Urine Negative (Negative); Cast Urine Automated 0-2 /lpf (0-2); Color Urine Yellow; Epithelial Cell Urine Auto 0-2 /hpf (0-2); Glucose Urine UA Negative (Negative); Ketones Urine Negative (Negative); Leukocyte Esterase Urine Negative (Negative); Nitrite Urine Negative (Negative); Protein Urine Trace (Negative); RBC Urine Automated 0-2 /hpf (0-2); Specific Gravity Urine 1.014 (1.000-1.030); Urobilinogen Urine Negative (Negative); WBC Urine Automated 0-5 /hpf (0-5)
[2023-12-19] MEDS: OPTIRAY 320 100ml IV ONE (05:55)
[2023-12-19 06:10] LABS: Amphetamines+Metham, Urine Neg (Neg); Barbiturates, Urine Neg (Neg); Benzodiazepine, Urine Neg (Neg); Cocaine, Urine Neg (Neg); MDMA (Ecstacy), Urine Neg (Neg); Marijuana, Urine Neg (Neg); Methadone, Urine Neg (Neg); Opiate, Urine Neg (Neg); Phencyclidine, Urine Neg (Neg)
[2023-12-19] MEDS: dilTIAZem HCl 5 MG/ML 5 ML VIAL IV STA (06:45)
[2023-12-19] MEDS: ONDANSETRON INJ 2 MG/ML 2 ML VIAL IV STA (06:50)
--- NOTE | 2023-12-19 06:50 | CT Scan Report ---
Exam(s): CT ABDOMEN + PELVIS With Contrast Oral - High Density Amt: 30 ML GASTRO, IV Amt: 92 ML OPTIRAY 320 EXAM: CT Abdomen and Pelvis With Intravenous Contrast CLINICAL HISTORY: Reason for exam: R abd pain. Hx meckels with perf.. TECHNIQUE: Axial computed tomography images of the abdomen and pelvis with intravenous contrast. CTDI is 26.98 mGy and DLP is 1276.01 mGy-cm. Automated exposure control was utilized for the study. A dose lowering technique was utilized adhering to the principles of ALARA. CONTRAST: Patient received 30 ML GASTRO of Oral - High Density and 92 ML OPTIRAY 320 of IV contrast COMPARISON: No relevant prior studies available. FINDINGS: Lung bases: There is some septal wall thickening to the lungs greatest to the right lower lobe. No consolidation. ABDOMEN: Liver: Patchy regions of hypodensities scattered throughout the liver parenchyma. Gallbladder and bile ducts: Unremarkable. No calcified stones. No ductal dilation. Pancreas: Unremarkable. No mass. No ductal dilation. Spleen: Unremarkable. No splenomegaly. Adrenals: Unremarkable. No mass. Kidneys and ureters: Unremarkable. No solid mass. No hydronephrosis. Stomach and bowel: There is a tubular structure demonstrated within the right side of the abdomen which is blind ending. There is some inflammation and thickening demonstrated surrounding it. It communicates with the approximated distal small bowel. There are postsurgical changes demonstrated to the bowel. No obstruction. PELVIS: Appendix: No findings to suggest acute appendicitis. Bladder: There is some urinary bladder wall mild thickening, distention and trabeculation. Reproductive: Unremarkable as visualized. ABDOMEN and PELVIS: Intraperitoneal space: Unremarkable. No free air. No significant fluid collection. Bones/joints: There are degenerative changes to the osseous structures. No acute fracture. No dislocation. Soft tissues: Unremarkable. Vasculature: Unremarkable. No abdominal aortic aneurysm. Lymph nodes: Unremarkable. No enlarged lymph nodes. IMPRESSION: Right abdominal abnormality presumably related to inflamed Meckel's diverticula patchy hypodensities of the liver probable regions of focal fatty infiltration definitive assessment would require liver MRI. Imaging findings suggesting a component of bladder outlet obstruction or cystitis. Some septal wall thickening correlate for signs of cardiogenic or noncardiogenic edema. Electronically signed by: Ghanshyam Wagner MD 12/19/23 06:49 AM
[2023-12-19] MEDS: MAGNESIUM SULFATE / D5W 1 GM/100 ML BAG IV STA (07:29)
--- NOTE | 2023-12-19 07:45 | XRay Report ---
XR chest 1V portable CLINICAL HISTORY: new onset atrial fib COMPARISON STUDY: Chest radiograph May 14, 2017. Chest CT April 14, 2021. FINDINGS: There is no pneumothorax or pleural effusion. Moderate cardiomegaly is noted. Lower lung in terstitial thickening is present. No consolidation is identified to suggest pneumonia. Linear left mi dlung densities favor atelectasis. IMPRESSION: Cardiomegaly with mild interstitial pulmonary edema. ACT 112: Negative or not required by law. Electronically signed by: Gumaro Anderson M.D. 12/19/2023 7:43 AM
[2023-12-19 08:02] LABS: Troponin I High Sensitivity 5.5 pg/ml (0-20)
[2023-12-19 08:07] LABS: Partial Thromboplastin Time 27 Seconds (21-31); Prothrombin Time 11.2 Seconds (9.0-12.0)
[2023-12-19 08:12] LABS: Thyroid Stimulating Hormone 2.983 uIu/ml (0.300-4.500)
[2023-12-19 08:14] LABS: T4 Free Thyroxine 0.77 ng/dl (0.61-1.60)
--- NOTE | 2023-12-19 08:37 | Electrocardiogram Report ---
Test Reason : Blood Pressure : / mmHG Vent. Rate : 123 BPM Atrial Rate : 000 BPM P-R Int : 000 ms QRS Dur : 084 ms QT Int : 330 ms P-R-T Axes : 000 085 043 degrees QTc Int : 472 ms Atrial fibrillation with rapid ventricular response Poor R wave progression, consider anterior MN vs. lead placement vs. LVH Abnormal ECG When compared with ECG of 14-APR-2021 14:00, Atrial fibrillation has replaced Sinus rhythm Vent. rate has increased BY 63 BPM PRWP now present Confirmed by Edmond Peng ([id number]) on 12/19/2023 8:36:51 AM Referred By: REFERRED SELF Confirmed By:Edmond Peng
--- NOTE | 2023-12-19 08:41 | History & Physical Report ---
Date of Service December 19, 2023 Assessment & Plan (1) Atrial fibrillation with rapid ventricular response: Plan: New onset sometime within the past 5 months I think. Asymptomatic except for mild dyspnea on exertion. He received 1 dose of IV diltiazem in the ED. Will start oral metoprolol and Eliquis. He has no history of any DVT or bleeding diathesis. Cardiac echo ordered. Will check thyroid profile. Telemetry. (2) Abdominal pain: Plan: Recent perforated Meckel's diverticulum. He has completed his oral course of Augmentin. Abdominal CT scan completed in the ED. No intervention necessary at this time Plan Hopeful discharge to home tomorrow, December 19 History of Present Illness Chief Complaint: Abdominal discomfort Primary Care Provider: Hollis Ab 58-year-old white male who presented with abdominal discomfort. He was recently treated for a perforated Meckel's diverticulum. He was found to have atrial fibrillation with mildly rapid ventricular rate but no symptoms except for mild dyspnea on exertion which she attributed to his age. He denies chest pain or palpitations and is able to still lift weights. No syncope. He states that he was at his PCP office about 5 months ago and apparently at that time he was in normal sinus rhythm. Allergies Allergy/AdvReac Type Severity Reaction Status Date / Time No Known Allergies Allergy Verified 11/12/23 19:43 Home Medications Medication Instructions Recorded Confirmed Type amoxicillin 875 mg-potassium 1 tab PO BID #14 tabs 11/12/23 Rx clavulanate 125 mg tablet Past Med/Surg History Problem List (Updated 12/19/23 @ 07:15 by Prasad Eugene PA-C) Meckel diverticulum (Acute) Abdominal pain (Acute) Atrial fibrillation with rapid ventricular response (Acute) COVID-19 virus infection (Acute) History of colon resection Tubulovillous adenoma of colon (Acute 07/07/14) Abdominal pain (Acute) Elevated CK (Acute) Multiple air fluid levels of small intestine determined by X-ray (Acute) Diarrhea (Acute) Right upper quadrant abdominal pain (Acute) Social History Smoking Status: Never smoker Preferred Language: Sinhala marital status: Current Living Situation: Spouse and Family current occupational status: employed Feels Safe at Home: No Review of Systems 2 Review of Systems: Constitutional-no fever or chills ENT-no blurred vision, no double vision, no epistaxis, no sore throat Respiratory-no cough, no wheezing, no shortness of breath Cardiac-no palpitations, no chest pain, no syncope GI-no nausea, vomiting, diarrhea, melena, hematochezia. He does have some vague abdominal discomfort -no urinary retention, no urinary incontinence, no dysuria, no hematuria Musculoskeletal-no joint pain, no muscle tenderness Skin-no bruising, no rashes, no pruritus Neuro-no isolated weakness, no paresthesia, no weakness Psych-no depression, no anxiety Physical Exam 2 Physical Exam: General-alert and oriented x3, no fever, no chills HEENT-head atraumatic and normocephalic, pupils equal and reactive to light, extraocular muscles intact Neck-no lymphadenopathy or thyromegaly, trachea midline Chest-clear to auscultation. No rales, wheezing or rhonchi Cardiac-irregular mildly tachycardic rhythm. Normal S1 and S2. Abdomen-normal bowel sounds, no hepatosplenomegaly. No masses. No focal tenderness Extremities-no cyanosis, clubbing, or edema Neuro-cranial nerves II through XII intact, motor and sensory function within normal limits, strength symmetrical, no focal deficits Psych-normal affect, normal mood Results & Data Results & Data Vital Signs (Past 12 Hours) Vital Signs Temp Pulse Pulse Resp BP BP Pulse Ox 12/19/23 06:50 101 H 22 95 12/19/23 06:42 129 H 22 96 12/19/23 06:42 128/94 12/19/23 06:40 124 H 22 98 12/19/23 06:30 117 H 22 96 12/19/23 06:20 118 H 22 98 12/19/23 06:18 131 H 12/19/23 06:17 138 H 22 97 12/19/23 06:14 120 H 16 97 12/19/23 06:12 126 H 16 124/87 97 12/19/23 03:18 36.2 C L 103 H 18 126/86 98 O2 Del Method 12/19/23 06:50 12/19/23 06:42 12/19/23 06:42 12/19/23 06:40 12/19/23 06:30 12/19/23 06:20 12/19/23 06:18 12/19/23 06:17 12/19/23 06:14 Room Air 12/19/23 06:12 Room Air 12/19/23 03:18 Room Air Laboratory Results 12/19/23 03:28 12/19/23 03:28 Code Status & VTE Plan Code Status Full code PG Care Time/CCT Total # of Minutes Spent Total Time Spent with Patient: Total time spent is greater than 50% in coordination of care (as documented) at patient's floor/unit and/or counseling patient: Coding Level of Care Code 50595 INT INP/OBS CARE 3/75MIN Diagnoses Atrial fibrillation with rapid ventricular response I48.91 Abdominal pain R10.9
[2023-12-19] MEDS ORDERED: ONDANSETRON INJ 2 MG/ML 2 ML VIAL IV PRN (10:07)
[2023-12-19] MEDS: APIXABAN 5 MG TABLET PO SCH (11:07)
[2023-12-19] MEDS: METOPROLOL TARTRATE 25 MG TAB PO SCH (11:07)
[2023-12-19] MEDS: ACETAMINOPHEN 325 MG TAB PO PRN (11:11)
--- NOTE | 2023-12-19 13:26 | XCELERA ---
[id number]
[2023-12-20] MEDS: METOPROLOL TARTRATE 50 MG TAB PO SCH (09:21)
--- NOTE | 2023-12-20 11:30 | Hospitalist Progress Note ---
Date of Service December 20, 2023 Assessment & Plan (1) Atrial fibrillation with rapid ventricular response: Plan: New onset sometime within the past 5 months. Asymptomatic except for mild dyspnea on exertion. He received 1 dose of IV diltiazem in the ED. he has since been started on metoprolol and Eliquis. The Eliquis is now on hold since he will undergo heart catheterization tomorrow, December 20. Appreciate cardiology consultation and recommendations. Cardiac echo revealed significant left ventricular systolic dysfunction. Underlying ischemic heart disease needs to be ruled out. Telemetry. (2) Abdominal pain: Plan: Recent perforated Meckel's diverticulum. He has completed his oral course of Augmentin. Abdominal CT scan completed in the ED. No intervention necessary at this time Plan Hopeful discharge to home tomorrow after his heart catheterization is completed, December 20 Admission and Anticipated Discharge Date Admission Date: December 19, 2023 Subjective Alert and oriented. No new problems. Metoprolol uptitrated to 50 mg twice daily for better heart rate control. Eliquis has been placed on hold as he will undergo left heart catheterization tomorrow, December 20. He will probably be discharged later in the day on December 20 so he can attend his daughter's graduation the following day. Review of Systems 2 Review of Systems: Constitutional-no fever or chills ENT-no blurred vision, no double vision, no epistaxis, no sore throat Respiratory-no cough, no wheezing, no shortness of breath Cardiac-no palpitations, no chest pain, no syncope GI-no nausea, vomiting, diarrhea, melena, hematochezia. He does have some vague abdominal discomfort -no urinary retention, no urinary incontinence, no dysuria, no hematuria Musculoskeletal-no joint pain, no muscle tenderness Skin-no bruising, no rashes, no pruritus Neuro-no isolated weakness, no paresthesia, no weakness Psych-no depression, no anxiety Physical Exam 2 Physical Exam: General-alert and oriented x3, no fever, no chills HEENT-head atraumatic and normocephalic, pupils equal and reactive to light, extraocular muscles intact Neck-no lymphadenopathy or thyromegaly, trachea midline Chest-clear to auscultation. No rales, wheezing or rhonchi Cardiac-irregular mildly tachycardic rhythm. Normal S1 and S2. Abdomen-normal bowel sounds, no hepatosplenomegaly. No masses. No focal tenderness Extremities-no cyanosis, clubbing, or edema Neuro-cranial nerves II through XII intact, motor and sensory function within normal limits, strength symmetrical, no focal deficits Psych-normal affect, normal mood Results & Data Results & Data Vital Signs (Past 12 Hours) Vital Signs Temp Pulse Resp BP Pulse Ox O2 Del Method 12/20/23 07:51 36.7 C 90 18 117/67 99 Room Air 12/20/23 03:14 36.9 C 76 18 112/78 96 Room Air Laboratory Results 12/19/23 03:28 12/19/23 03:28 PG Care Time/CCT Total # of Minutes Spent Total Time Spent with Patient: Total time spent is greater than 50% in coordination of care (as documented) at patient's floor/unit and/or counseling patient: Coding Level of Care Code 43475 SUB INP/OBS CARE 3/50MIN Diagnoses Atrial fibrillation with rapid ventricular response I48.91 Abdominal pain R10.9
--- NOTE | 2023-12-20 11:40 | Electrocardiogram Report ---
Test Reason : Blood Pressure : / mmHG Vent. Rate : 101 BPM Atrial Rate : 312 BPM P-R Int : 000 ms QRS Dur : 096 ms QT Int : 360 ms P-R-T Axes : 000 085 067 degrees QTc Int : 466 ms Atrial fibrillation with rapid ventricular response with premature ventricular or aberrantly conducte d complexes Abnormal ECG When compared with ECG of 19-DEC-2023 06:19, HR has decreased by 22 bpm Otherwise no significant change Confirmed by Edmond Peng ([id number]) on 12/20/2023 11:40:11 AM Referred By: REFERRED SELF Confirmed By:Edmond Peng
--- NOTE | 2023-12-20 16:12 | Cardiology Consultation ---
Date of Consultation December 20, 2023 Assessment & Plan (1) New onset atrial fibrillation: (2) Moderate to severe mitral regurgitation: (3) Cardiomyopathy: (4) Meckel diverticulum: Plan 58-year-old man with no prior cardiac history with recent inflamed Meckel's diverticulum who was incidentally noted to have atrial fibrillation, further workup with echocardiogram showed moderate to severe mitral regurgitation with moderate severity cardiomyopathy (EF 30-35%) of uncertain etiology. His only cardiopulmonary symptom is dyspnea on exertion and there is no immediate evidence of ongoing myocardial ischemia based on troponin and ECG. However, given his otherwise excellent health status and significant left ventricular impairment, recommend cardiac catheterization to definitively exclude role of coronary artery disease as well as to further evaluate severity of his mitral regurgitation. If left ventriculogram is inconclusive, could proceed with transesophageal echocardiogram, since it would be important to clarify whether his mitral regurgitation is a "chicken or egg" phenomenon, for it could be secondary to left ventricular dilation with reduced valve coaptation or it could be the primary cause of his reduced LV function. Since the duration of his atrial fibrillation is uncertain, would not proceed with early cardioversion but would first anticoagulate for 3 to 4 weeks. He did receive initial apixaban, but Agree with upward titration of beta-gasper to achieve rate control (80-100 bpm at rest). Further recommendations based upon results of cardiac catheterization and/for transesophageal echocardiogram. History of Present Illness Reason for Consultation: new atrial fib, low EF Requesting Physician: Omid Benítez MD Attending Physician: Omid Benítez MD History of Present Illness Generally healthy 58-year-old man with no cardiac history who was seen in surgical consultation for a small perforation of Meckel's diverticulum last month and was treated with antibiotics, presented to the ER yesterday with 2 or 3 days of abdominal discomfort and found to incidentally have atrial fibrillation with rapid ventricular response. He is physically active and lifts weights regularly without difficulty, but he does note that his aerobic exercise tolerance has dropped off in recent months. Previously, he had no difficulty walking up multiple flights of stairs, now 1 flight of stairs causes dyspneic symptoms. No orthopnea, PND, ankle edema, subjective palpitations, chest pain, presyncope, or syncope. His evaluation here included an ECG which showed atrial fibrillation at 123 bpm with poor R wave progression, otherwise unremarkable. Echocardiogram showed moderately reduced LV systolic function (EF 30 to 35%) with moderate global hypokinesis, moderate to severe mitral regurgitation with moderately dilated left atrium, and mild pulmonary hypertension. Troponin was normal. Chest x-ray showed mild increase in interstitial markings. Abdominal CT showed a possibly inflamed Meckel's diverticulum. At the time my evaluation this morning, he was comfortable and had no somatic complaints. Allergies Allergy/AdvReac Type Severity Reaction Status Date / Time No Known Allergies Allergy Verified 11/12/23 19:43 Home Medications Medication Instructions Recorded Confirmed Type No Known Home Medications 12/19/23 12/19/23 History Patient History Social History Smoking Status: Never smoker Second Hand Exposure: No; Do You Dip or Chew Tobacco: No; Hx Alcohol Use: Yes Alcohol type: wine Hx Substance Use: No Preferred Language: Andorran Communication Ability: Effective Plaster Die Maker Required: No Beliefs That Will Affect Care: None marital status: Current Living Situation: Spouse current occupational status: employed Feels Safe at Home: Yes Assistive Devices: None Physical Exam Physical Exam: Adult white male in no distress. Afebrile. BP 113/76 mmHg. Pulse 80 bpm and irregular. Skin: no ecchymoses or generalized lesions. HEENT: unremarkable. Neck: JVP at the clavicle at 90 degrees, no carotid bruits. Lungs: clear. Cardiac: Irregular/mildly tachycardic rhythm without obvious murmur. Abdomen: benign. Extremities: no edema, pulses intact. Neurologic: normal affect and conversation, nonfocal. Results & Data Vital Signs (Past 12 Hours) Vital Signs Temp Pulse Resp BP Pulse Ox O2 Del Method 12/20/23 11:44 98.4 F 74 18 113/76 97 Room Air 12/20/23 09:49 Room Air 12/20/23 07:51 98.1 F 90 18 117/67 99 Room Air Laboratory Results Normal CBC. Normal electrolytes, BUN 16, creatinine 0.9. Normal transaminases. Normal troponin. Normal thyroid studies. Diagnostic Findings ECG, chest x-ray, and echo as per HPI. PG Care Time/CCT Total # of Minutes Spent Total Time Spent with Patient: Total time spent is greater than 50% in coordination of care (as documented) at patient's floor/unit and/or counseling patient: Coding Level of Care Code 17662 IN/OBS CONSULT LVL 5,80M Diagnoses New onset atrial fibrillation I48.91 Moderate to severe mitral regurgitation I34.0 Cardiomyopathy I42.9 Meckel diverticulum Q43.0
--- NOTE | 2023-12-21 13:01 | Pre Anesthesia Assessment ---
Date of Service December 21, 2023 Pre Sedation Assessment Vital Signs Temp Pulse Pulse Resp BP Pulse Ox O2 Del Method 12/21/23 12:48 98 H 18 129/100 100 Room Air 12/21/23 11:38 36.8 C 81 19 96/61 L 96 Room Air 12/21/23 07:48 36.6 C 82 18 117/79 97 Room Air 12/21/23 07:21 Room Air 12/21/23 07:14 80 12/21/23 03:40 36.6 C 87 18 108/79 97 Room Air 12/20/23 23:18 36.7 C 94 H 18 105/74 96 Room Air 12/20/23 19:42 37 C 69 18 106/68 97 Room Air 12/20/23 16:25 36.8 C 89 18 101/71 98 Room Air Cardiovascular Additional Comments: GRADE 2 MURMUR NO EDEMA IRRR Respiratory normal respiratory effort, lungs clear to auscultation Pre-Sedation Airway Assessment Smoking Status: Never smoker Hx Sleep Apnea: Yes Short, Thick Neck: No Thyromental Distance: > or= 3.5 Finger Breadths Oral Cavity: + Dentures Mallampati Class: III ASA: ASA3 NPO Status Date of Last Intake of Fluids: 12/20/23 Time of Last Intake of Fluids: 22:00 Date of Last Intake of Solid Food: 12/20/23 Time of Last Intake of Solid Foods: 21:00 Notes The planned sedation has been discussed with the patient. Informed Consent was obtained. I have identified the patient, determined the appropriateness of sedation and have assessed the patient immediately prior to the procedure. All medicine(s) and interventions are by my order.
[2023-12-21] MEDS ORDERED: METOPROLOL TARTRATE 1 MG/ML VIAL IV ONE (13:20)
[2023-12-21] MEDS: niCARdipine HCL INJ 2.5 MG/ML 10 ML AMP ONE (13:40)
[2023-12-21] MEDS: MIDAZOLAM HCL 1 MG/ML 2ML VIAL ONE (13:40)
[2023-12-21] MEDS: fentaNYL citrate PF 100 MCG/2 ML VIAL ONE (13:41)
[2023-12-21] MEDS: HEPARIN (PORCINE) 1000 UNIT/ML 10 ML (CATH LAB USE ONLY) ONE (13:41)
[2023-12-21] MEDS: NITROGLYCERIN/D5W 100MCG/ML 20ML SYR ONE (13:41)
[2023-12-21] MEDS: OPTIRAY 350 ONE (13:42)
[2023-12-21] MEDS ORDERED: NITROGLYCERIN SL 0.4 MG/TAB TAB SL PRN (13:46)
--- NOTE | 2023-12-21 13:48 | Post Anesthesia Assessment ---
Date of Service December 21, 2023 Post Sedation Assessment Vital Signs Temp Pulse Pulse Resp BP Pulse Ox O2 Del Method 12/21/23 12:48 98 H 18 129/100 100 Room Air 12/21/23 11:38 36.8 C 81 19 96/61 L 96 Room Air 12/21/23 07:48 36.6 C 82 18 117/79 97 Room Air 12/21/23 07:21 Room Air 12/21/23 07:14 80 12/21/23 03:40 36.6 C 87 18 108/79 97 Room Air 12/20/23 23:18 36.7 C 94 H 18 105/74 96 Room Air 12/20/23 19:42 37 C 69 18 106/68 97 Room Air 12/20/23 16:25 36.8 C 89 18 101/71 98 Room Air Recovery Score Activity: Moves 4 extremities Respiration: Deep Breath/Cough Circulation: +/-20% PreAnes Value Consciousness: Fully Awake Oxygen Saturation: > 92% On Room Air Discharge Sedation Level of Care: Fast Track Phase II Post Sedation Plan On clinical assessment, the patient appears to have tolerated the sedation without complications. Patient is recovering as anticipated. Patient will continue to be monitored by nursing and may be discharged when sedation discharge criteria are met per below protocol. Upon Completions of procedure up to 15 minutes continue every 5 minute vital signs and the P.A.R. score; then discharge to a Phase I or Fast Track to Phase II per the following guidelines: * Discharge Patient to appropriate Phase II area if PAR is 8 or greater or return to pre- procedure baseline. The post - procedure orders will be as directed. * If PAR score is less than 8 or not return to pre-procedure baseline then patient will follow Phase I monitoring till PAR is reached for Phase II. The Phase I may be done in procedure room or may call to secure a Phase I area. * If naloxone or flumazenil are used for reversal, hold in Phase I for continued monitoring from when last reversal dose was given for a minimum of 60 minutes or longer pending the nurse and/or physician discretion of patient condition before discharge to Phase II. Please call the Sedation Physician to re-evaluate and complete post-note for discharge to Phase II area. Do NOT discharge from procedure sedation or Phase 1 until post- sedation evaluation note is complete by procedure /sedation MD Sedation Discharge Instructions to be given to the patient at discharge to home. [facility] Procedure Codes (Charges) Indication for Procedure Indication for procedure: AFIB MR CARDIOMYOPATHY
[2023-12-21 14:30] VITALS: TEMP 98.1
--- NOTE | 2023-12-21 14:37 | Hospitalist Progress Note ---
Date of Service December 21, 2023 Assessment & Plan (1) Atrial fibrillation with rapid ventricular response: Plan: New onset sometime within the past 5 months. Asymptomatic except for mild dyspnea on exertion. He received 1 dose of IV diltiazem in the ED. he has since been started on metoprolol and Eliquis. The Eliquis is now on hold since he will undergo heart catheterization tomorrow, December 20. Appreciate cardiology consultation and recommendations. Cardiac echo revealed significant left ventricular systolic dysfunction. He underwent heart catheterization today, December 20, with no significant findings seen. He will be discharged home later today on Eliquis and metoprolol. (2) Abdominal pain: Plan: Recent perforated Meckel's diverticulum. He has completed his oral course of Augmentin. Abdominal CT scan completed in the ED. No intervention necessary at this time Plan Home later today, December 20. Admission and Anticipated Discharge Date Admission Date: December 19, 2023 Subjective The patient was seen before he underwent heart catheterization. is at the bedside. He is asymptomatic. Heart catheterization was completed and I spoke to cardiology. There were no significant findings. He will be able to be discharged home later today. Repeat cardiac echo will be done at a later date Review of Systems 2 Review of Systems: Constitutional-no fever or chills ENT-no blurred vision, no double vision, no epistaxis, no sore throat Respiratory-no cough, no wheezing, no shortness of breath Cardiac-no palpitations, no chest pain, no syncope GI-no nausea, vomiting, diarrhea, melena, hematochezia. He does have some vague abdominal discomfort -no urinary retention, no urinary incontinence, no dysuria, no hematuria Musculoskeletal-no joint pain, no muscle tenderness Skin-no bruising, no rashes, no pruritus Neuro-no isolated weakness, no paresthesia, no weakness Psych-no depression, no anxiety Physical Exam 2 Physical Exam: General-alert and oriented x3, no fever, no chills HEENT-head atraumatic and normocephalic, pupils equal and reactive to light, extraocular muscles intact Neck-no lymphadenopathy or thyromegaly, trachea midline Chest-clear to auscultation. No rales, wheezing or rhonchi Cardiac-irregular mildly tachycardic rhythm. Normal S1 and S2. Abdomen-normal bowel sounds, no hepatosplenomegaly. No masses. No focal tenderness Extremities-no cyanosis, clubbing, or edema Neuro-cranial nerves II through XII intact, motor and sensory function within normal limits, strength symmetrical, no focal deficits Psych-normal affect, normal mood Results & Data Results & Data Vital Signs (Past 12 Hours) Vital Signs Temp Pulse Pulse Resp BP Pulse Ox O2 Del Method 12/21/23 14:25 36.7 C 95 H 19 111/77 96 Room Air 12/21/23 14:05 112 H 18 101/83 97 Room Air 12/21/23 13:50 92 H 18 117/84 96 Room Air 12/21/23 12:48 98 H 18 129/100 100 Room Air 12/21/23 11:38 36.8 C 81 19 96/61 L 96 Room Air 12/21/23 07:48 36.6 C 82 18 117/79 97 Room Air 12/21/23 07:21 Room Air 12/21/23 07:14 80 12/21/23 03:40 36.6 C 87 18 108/79 97 Room Air Laboratory Results 12/19/23 03:28 12/19/23 03:28 PG Care Time/CCT Total # of Minutes Spent Total Time Spent with Patient: Total time spent is greater than 50% in coordination of care (as documented) at patient's floor/unit and/or counseling patient: Coding Level of Care Code 90600 SUB INP/OBS CARE 3/50MIN Diagnoses Atrial fibrillation with rapid ventricular response I48.91 Abdominal pain R10.9
--- NOTE | 2023-12-21 14:39 | Discharge Summary ---
Date of Service December 21, 2023 Admission HPI Per Admitting Provider 58-year-old white male who presented with abdominal discomfort. He was recently treated for a perforated Meckel's diverticulum. He was found to have atrial fibrillation with mildly rapid ventricular rate but no symptoms except for mild dyspnea on exertion which she attributed to his age. He denies chest pain or palpitations and is able to still lift weights. No syncope. He states that he was at his PCP office about 5 months ago and apparently at that time he was in normal sinus rhythm. Principal Diagnosis New onset atrial fibrillation with rapid ventricular rate, nonischemic left ventricular systolic dysfunction Discharge Exam General-alert and oriented x3, no fever, no chills HEENT-head atraumatic and normocephalic, pupils equal and reactive to light, extraocular muscles intact Neck-no lymphadenopathy or thyromegaly, trachea midline Chest-clear to auscultation. No rales, wheezing or rhonchi Cardiac-irregular mildly tachycardic rhythm. Normal S1 and S2. Abdomen-normal bowel sounds, no hepatosplenomegaly. No masses. No focal tenderness Extremities-no cyanosis, clubbing, or edema Neuro-cranial nerves II through XII intact, motor and sensory function within normal limits, strength symmetrical, no focal deficits Psych-normal affect, normal mood Discharge Data Allergies Allergy/AdvReac Type Severity Reaction Status Date / Time No Known Allergies Allergy Verified 11/12/23 19:43 Consultations 12/19/23 07:16 ED Decision to Admit Stat 12/19/23 16:26 Consult Cardiology Routine Procedures Performed Operation Date: 12/21/23 11:00 Actual Procedures p Cineradiography w/Routine Exam - Prasad Cobos MD, PhD p Cath, Left with Cors and Vent - Prasad Cobos MD, PhD Ordered Studies 12/19/23 03:32 CT abd pelvis oral and IV con Stat 12/21/23 07:36 CL Cath Imgs for PACS use only Routine Hospital Course (1) Atrial fibrillation with rapid ventricular response: New onset sometime within the past 5 months. Asymptomatic except for mild dyspnea on exertion. He received 1 dose of IV diltiazem in the ED. he has since been started on metoprolol and Eliquis. The Eliquis is now on hold since he will undergo heart catheterization tomorrow, December 20. Appreciate cardiology consultation and recommendations. Cardiac echo revealed significant left ventricular systolic dysfunction. He underwent heart catheterization today, December 20, with no significant findings seen. He will be discharged home later today on Eliquis and metoprolol. (2) Abdominal pain: Recent perforated Meckel's diverticulum. He has completed his oral course of Augmentin. Abdominal CT scan completed in the ED. No intervention necessary at this time Plan Home later today, December 20. Total Time Total Time Spent Total Time Spent (In Minutes): 45 minutes Discharge Plan Discharge Items Patient Disposition: Home - Self-Care Reason For Visit: ABDOMINAL PAIN - POSSIBLE INTESTINAL PERFORATION Discharge Diagnosis: New onset atrial fibrillation with rapid ventricular rate, left ventricular systolic dysfunction without ischemia, abdominal pain Activity: Resume your previous activity Non-emergency contact: Primary Care Provider Call non-emergency contact if: you have any medication questions and your symptoms worsen Follow-up/Referrals: Hollis Berger [Primary Care Provider] - Diet: Regular Addtl Attending Provider Instructions: Take metoprolol and Eliquis twice daily. Follow-up with primary care provider soon as possible. Cardiac echo will need to be repeated again in 4 to 6 weeks. Pending Studies at Discharge: No Stand-Alone Forms: [facility] [employer], Smoking Cessation Medications and DC Order Prescriptions: New Eliquis 5 mg Tablet 5 mg PO BID Qty: 60 0RF metoprolol tartrate 50 mg Tablet 50 mg PO BID Qty: 60 0RF No Action No Known Home Medications Discharge Orders: Discharge Order (Routine); Ordered 12/21/23 Ordered By: Omid Benítez Admission Data Admit Date/Time: 12/19/23 08:32 Attending Provider: Omid Benítez Admit Provider: Omid Benítez Primary Care Provider: Hollis Berger Other Providers: Omid Benítez; Blake Bearden; Edmond Peng; Marcus Mojica; Prasad Cobos; Willy Friedman; Toy Posadas Jr; Justin Wells; Zee Martin; Tuyet Crouch; Presley Mejia; Presley Burgos; Omid Mariano; Marly Marquez; Siddharth Dick; Ruby Singer; Elijah Cm.; Fransico Fisher; Andry De Guzman; Daron Hinds Coding Level of Care Code 48124 INP/OBS DISCH >30 MIN Diagnoses Atrial fibrillation with rapid ventricular response I48.91 Abdominal pain R10.9
[2023-12-21 16:15] VITALS: O2SAT 98
--- NOTE | 2023-12-21 16:22 | Cardiac Catheterization ---
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 Director Cardiac Status Clinical evaluation leading to the procedure CAD Presenation: No Sxs, No angina Anginal Classification: No Symptoms Heart Failure: NYHA Class: CCS IV Cardiogenic Shock within 24 Hours: No Cardiac Arrest within 24 Hours: No Imaging Studies Past 6 Months: Yes Stress Studies Past 6 Months: No Coronary Anatomy Dominant: Right Left Main (% Stenosis): Normal LAD (% Stenosis): Normal D1 (% Stenosis): Normal D2 (% Stenosis): Normal D3 (% Stenosis): Normal Circumflex (% Stenosis): Normal OM1 (% Stenosis): Normal OM2 (% Stenosis): Normal RCA (% Stenosis): Normal R PDA (% Stenosis): Normal R PL1 (% Stenosis): Normal Ramus (% Stenosis): Ostial (20 to 30%) Left Ventricular Angiography EF (%): 30% Mitral Regurgitation: 1+ Diagnostic Physicians Name: Prasad Cobos MD, PhD Closure Device Percutaneous Entry Location: Radial Closure Device: Radial Band Recommendations: Medical Therapy and/or Counseling Cardiac Cath Procedure Full Procedure Date December 21, 2023 Pre-Procedure Diagnosis Pre-Procedure Diagnosis: Cardiomyopathy AUC Score AUC Score: 07 Post-Procedure Diagnosis Post-Procedure Diagnosis: Normal Coronary Arteries, Decreased LV Systolic Function and Elevated Intracardiac Pressures Procedure(s) Performed Procedure(s) Performed: Coronary Angiography, Left Heart Cath and LV Angiography Maintenance Mechanic Supervisor Prasad Cobos MD, PhD Estimated Blood Loss Estimated Blood Loss: 5 cc Medication(s) Medication(s): Fentanyl, Heparin, Lidocaine 1%, Nicardipine, Nitroglycerin and Versed Summary of Findings Brief description: Patient was brought to the cardiac catheterization suite where he was shaved and prepped in a sterile fashion. Sedated using IV Versed and fentanyl. Soft tissues of the right wrist were anesthetized using 2 mL of 1% Xylocaine. The right radial artery was accessed with a modified Seldinger technique and a 6 [place] radial artery glide sheath was placed. Patient was provided anticoagulation with IV heparin and antispasmodics including nicardipine and nitroglycerin. All catheters were advanced and exchanged over a 0.035 J-tip wire. Left coronary angiography in orthogonal views with a 5 [place] JL 3.5 diagnostic catheter. Right coronary angiography in orthogonal views with a 5 [place] JR4 diagnostic catheter. Left heart cath and left ventriculogram were performed with a 5 [place] angled pigtail catheter. All catheters were removed. Radial artery sheath was removed. Hemostasis was obtained using the TR band. Patient remained hemodynamically stable and asymptomatic. He was returned to the recovery area. This ended the case. Coronary angiography findings: ZTS-pxxec-eginswl vessel trifurcating into LAD, ramus, and circumflex. No angiographically evident disease. DQV-oduts-iwkwnqu and transapical. Gives a medium caliber first diagonal and then distally there are tandem small caliber D2 and D3 vessels. There is also a large septal branch coming off at the level of the first diagonal. There is no angiographically evident disease in the LAD or its branches. Odfdh-kwtmi-prhmpwm and branching vessel. Ostial 20 to 30% stenosis. The remainder of the ramus and its branches have no angiographically evident disease. Left lbrxxqkooi-ivvyr-uksqmyt and nondominant. Travels in the AV groove where it gives 2 small obtuse marginal branches and then an atrial branch before it discontinues. There is no angiographically evident disease in the circumflex or its branches. GAT-qofju-tjkrumz and dominant vessel. Bifurcates distally into the PDA and posterolateral branch. There is no angiographically evident disease in the RCA or its branches LVG- EF is 30%, global hypokinesis 1+ mitral regurgitation Summary: 1. Normal epicardial coronary arteries 2. Moderate to severely reduced ejection fraction with global hypokinesis. 3. 1+ mitral regurgitation by this method. 4. Recommend guideline directed medical therapy for cardiomyopathy and atrial fibrillation. Hemodynamics Rest Ao:: 103/80 mmHg Final Ao: 95/68 mmHg LV: 85/12 mmHg, LVEDP 24 mmHg Recommendations Recommendations: Medical Therapy and/or Counseling Radiation Exposure (mGy) 1093 mGy, fluoroscopy time 7.3 minutes Contrast (mls) 75 mL Anesthesia 1 mg Versed, 50 mcg fentanyl IV. Start time 1321, end time 1343 Procedural Complication(s) None Disposition Apprentice Funeral Director Holding/Recovery I attest to the content of the Intraoperative Record and any orders documented therein. Any exceptions are noted below. [facility] Card Cath Procedure Codes Cardiac Catheterization Procedure 1: Cardiovascular Cath Procedures: 46187 Coronaries and LHC (+/-LV) Moderate Sedation Procedure 1: Sedation/Anesthesia: 17401 Mod Sedation by the same physician;Init15 Min Child Age 5 & Up (Initial 15 min, start time 1321) Procedure 2: Sedation/Anesthesia: 32458 Mod Sedation by the same physician; Ea [id number] Minutes (Additional 7 min, end time 1343) PG Care Time/CCT Total # of Minutes Spent Total Time Spent with Patient: Total time spent is greater than 50% in coordination of care (as documented) at patient's floor/unit and/or counseling patient:
[2023-12-21 16:38] VITALS: BP 109/74; PULSE 80; RESP 18
--- NOTE | 2023-12-21 16:56 | Cardiology Progress Note ---
Date of Service December 21, 2023 Assessment & Plan (1) New onset atrial fibrillation: (2) Nonischemic cardiomyopathy: (3) Mitral regurgitation: Plan Doing well, rate control improved but still slightly suboptimal (80-105 bpm at rest). As noted, normal coronary arteries and mitral regurgitation appeared much less severe than initially (perhaps due to improved rate control). Patient with nonischemic cardiomyopathy, most likely secondary to uncontrolled ventricular response to atrial fibrillation over the past several months. Mainstay of therapy is rate control, possibly with afterload reduction added later (not currently given low normal BP). Would discharge on metoprolol succinate 100 mg each morning, 50 mg each evening. Continue apixaban 5 mg twice daily. Will reevaluate nonischemic cardiomyopathy in 3 to 6 months with repeat echocardiogram after rate control has been achieved and consistent. May consider elective electrical cardioversion after 3 to 4 weeks of anticoagulation. I will arrange follow-up with me in 2 to 4 weeks. Admission and Anticipated Discharge Date Admission Date: December 19, 2023 Subjective Uneventful night, he feels well. No chest pain, dyspnea, palpitations, or lightheadedness. Cardiac catheterization showed normal coronary arteries with moderate to severely reduced ejection fraction and only mild mitral regurgitation (1+). Physical Exam Physical Exam: No distress. BP normotensive. Pulse 80 bpm and irregular. Skin: no ecchymoses or generalized lesions. HEENT: unremarkable. Neck: JVP at the clavicle at 90 degrees, no carotid bruits. Lungs: clear. Cardiac: Irregular/mildly tachycardic rhythm without obvious murmur. Abdomen: benign. Extremities: no edema, pulses intact. Right radial access site benign. Neurologic: normal affect and conversation, nonfocal. PG Care Time/CCT Total # of Minutes Spent Total Time Spent with Patient: Total time spent is greater than 50% in coordination of care (as documented) at patient's floor/unit and/or counseling patient: Coding Level of Care Code 89485 SUB INP/OBS CARE 3/50MIN Diagnoses New onset atrial fibrillation I48.91 Nonischemic cardiomyopathy I42.8 Mitral regurgitation I34.0
== END 2023-12-21 19:25 | disposition home or self-care (01) ==
LOC: SUATTDRO → ED 03:15 → 2W 03:15 → 2S 12-21 14:24